=== PATIENT | male | born 1945 | race Caucasian/White ===

== ENCOUNTER → 2016-10-13 | Outpatient (CLI) | payer OTHER, BC ==
[~2016-10-13] MED LIST: GADOBUTROL 10 ML VIAL IVP ONE
== END ==
LOC: FIMAGING 14:37
PROVIDERS: ATTEND Otolaryngology
DX: H91.8X1 Other specified hearing loss, right ear (principal); Z86.73 Personal history of transient ischemic attack (TIA), and cerebral infarction without residual deficits
CPT/HCPCS: 70553; A9585

== ENCOUNTER → 2016-11-17 | Outpatient (CLI) | payer OTHER, BC | LOC: FIMAGING 17:59 | PROVIDERS: ATTEND Physical Medicine & Rehabilitation | DX: M77.8 Other enthesopathies, not elsewhere classified (principal) ==

== ENCOUNTER → 2018-04-02 | Outpatient (CLI) | payer OTHER, BC | LOC: FIMAGING 15:26 | PROVIDERS: ATTEND Family Medicine | DX: M23.303 Other meniscus derangements, unspecified medial meniscus, right knee (principal); M76.891 Other specified enthesopathies of right lower limb, excluding foot ==

== ENCOUNTER 2018-08-23 11:22 | Emergency (ER) | payer OTHER, BC ==
[2018-08-23] MEDS ORDERED: NS 2,400 ML IV ONE (13:11)
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
[2018-08-23 13:39] LABS: PLATELET COUNT 143 10^3/uL (150-400)
[2018-08-23 13:44] LABS: PROTIME(PATIENT) 12.8 SEC (12.0-15.0)
--- NOTE | 2018-08-23 13:48 | CPEKG ---
Test Reason : OPEN Blood Pressure : / mmHG Vent. Rate : 053 BPM Atrial Rate : 053 BPM P-R Int : 169 ms QRS Dur : 100 ms QT Int : 454 ms P-R-T Axes : 009 003 034 degrees QTc Int : 427 ms Sinus rhythm Confirmed by Jonelle Bahena ([id number]) on 08/23/2018 1:48:39 PM Referred By: JONELLE BAHENA Confirmed By:Jonelle Bahena
[2018-08-23] MEDS ORDERED: CEPHALEXIN 500 MG CAP PO ONE (15:41)
[2018-08-23 15:57] VITALS: BP 110/69
== END 2018-08-23 15:56 | disposition home or self-care (01) ==
DX: N30.00 Acute cystitis without hematuria (principal); E86.9 Volume depletion, unspecified
CPT/HCPCS: 82435-PO; 82565-PO; 82947-PO; 84132-PO; 84295-PO; 84520-PO; 85014-ER